=== PATIENT | female | born 1980 | race Two or more races ===

== ENCOUNTER 2019-03-06 11:29 | Emergency (ER) | payer OTHER ==
[~2019-03-06] VITALS: Ht 162.6 cm; Wt 64.0 kg
[2019-03-06] MEDS ORDERED: PRENATAL + DHA1 EAC1 (11:55)
== END 2019-03-06 13:13 | disposition home or self-care (01) ==
LOC: ER 11:29
DX: B34.9 Viral infection, unspecified (principal)

== ENCOUNTER 2019-05-03 16:30 | Inpatient (IN) | payer OTHER ==
[~2019-05-03] VITALS: Ht 162.6 cm; Wt 67.1 kg
[~2019-05-03 16:30] MED LIST: PRENATAL + DHA1 EAC1
[2019-05-03] MEDS ORDERED: IRON325 MG PO (17:45)
[2019-05-03] MEDS ORDERED: DIALYVITE 800-1 EACH PO (17:45)
[2019-05-03] MEDS ORDERED: VITAL-D RX TAB1 EACH PO (17:46)
[2019-05-03] MEDS ORDERED: OMEGA 3 1,0001 EACH PO (17:46)
[2019-05-03] MEDS ORDERED: NIFEDIPINE20 MG PO (17:47)
== END 2019-05-04 15:51 | disposition home or self-care (01) | DRG 833 ==
LOC: LDR 16:30
PROVIDERS: ADMIT Specialist
PROC: BY4CZZZ Ultrasonography of Second Trimester, Single Fetus (ICD-10-PCS; principal; 2019-05-03)
PROC: 4A1HXCZ Monitoring of Products of Conception, Cardiac Rate, External Approach (ICD-10-PCS; 2019-05-03)
DX: O60.02 Preterm labor without delivery, second trimester (principal)

== ENCOUNTER 2019-06-17 15:30 | Inpatient (IN) | payer OTHER ==
[~2019-06-17] VITALS: Ht 160 cm; Wt 74.8 kg
[~2019-06-17 15:30] MED LIST changes: +DIALYVITE 800-1 EACH PO; +IRON325 MG PO; +NIFEDIPINE20 MG PO; +OMEGA 3 1,0001 EACH PO; +VITAL-D RX TAB1 EACH PO
== END 2019-07-29 14:29 | disposition home or self-care (01) | DRG 788 ==
LOC: LDR 07-26 05:59 → O/R 07-26 09:44 → SURG-SUITE 07-26 11:04 → OB/GYN 08-10 15:30
PROVIDERS: ADMIT Specialist
PROC: 4A1HXFZ Monitoring of Products of Conception, Cardiac Rhythm, External Approach (ICD-10-PCS; 2019-07-26)
PROC: 3E033VJ Introduction of Other Hormone into Peripheral Vein, Percutaneous Approach (ICD-10-PCS; 2019-07-26)
PROC: 10D00Z1 Extraction of Products of Conception, Low, Open Approach (ICD-10-PCS; principal; 2019-07-26 06:30)
DX: O65.4 Obstructed labor due to fetopelvic disproportion, unspecified (principal); O69.81X0 Labor and delivery complicated by cord around neck, without compression, not applicable or unspecified; Z3A.37 37 weeks gestation of pregnancy; Z37.0 Single live birth

== ENCOUNTER → 2019-07-19 | Outpatient (CLI) | payer OTHER | END | disposition home or self-care (01) | LOC: PRENATAL | PROVIDERS: ATTEND Specialist | DX: O35.0XX1 Maternal care for (suspected) central nervous system malformation in fetus, fetus 1 (principal); O26.843 Uterine size-date discrepancy, third trimester; O99.89 Other specified diseases and conditions complicating pregnancy, childbirth and the puerperium; O36.8131 Decreased fetal movements, third trimester, fetus 1 ==

== ENCOUNTER 2021-01-07 08:29 | Outpatient (CLI) | payer OTHER | END 2021-01-07 09:30 | disposition home or self-care (01) | LOC: PRENATAL 08:29 | PROVIDERS: ATTEND Obstetrics & Gynecology Maternal & Fetal Medicine | DX: O35.0XX1 Maternal care for (suspected) central nervous system malformation in fetus, fetus 1 (principal); O35.3XX1 Maternal care for (suspected) damage to fetus from viral disease in mother, fetus 1; O98.512 Other viral diseases complicating pregnancy, second trimester; O09.522 Supervision of elderly multigravida, second trimester; O44.02 Complete placenta previa NOS or without hemorrhage, second trimester; Z36.89 Encounter for other specified antenatal screening; Z3A.19 19 weeks gestation of pregnancy ==

== ENCOUNTER 2021-01-25 17:21 | Outpatient (CLI) | payer OTHER | END 2021-01-26 12:11 | disposition home or self-care (01) | LOC: OBS/DEL 17:21 | PROVIDERS: ATTEND Specialist | DX: O26.892 Other specified pregnancy related conditions, second trimester (principal); R10.2 Pelvic and perineal pain; Z3A.22 22 weeks gestation of pregnancy ==

== ENCOUNTER 2021-03-11 08:34 | Outpatient (CLI) | payer OTHER | END 2021-03-11 09:45 | disposition home or self-care (01) | LOC: PRENATAL 08:34 | PROVIDERS: ATTEND Obstetrics & Gynecology Maternal & Fetal Medicine | DX: O26.843 Uterine size-date discrepancy, third trimester (principal); O09.523 Supervision of elderly multigravida, third trimester; O44.03 Complete placenta previa NOS or without hemorrhage, third trimester; Z36.89 Encounter for other specified antenatal screening; Z3A.28 28 weeks gestation of pregnancy ==

== ENCOUNTER 2021-04-21 13:35 | Inpatient (IN) | payer OTHER ==
[~2021-04-21] VITALS: Ht 152.4 cm; Wt 69.4 kg
== END 2021-04-23 08:36 | disposition home or self-care (01) | DRG 833 ==
LOC: OBS/DEL 13:35 → LDR 04-22 10:24 → OB/GYN 04-22 17:33 → LDR 04-22 17:36
PROVIDERS: ADMIT Specialist; ATTEND Specialist
PROC: BY4FZZZ Ultrasonography of Third Trimester, Single Fetus (ICD-10-PCS; 2021-04-21)
PROC: BU46ZZZ Ultrasonography of Uterus (ICD-10-PCS; 2021-04-21)
PROC: 4A1HXFZ Monitoring of Products of Conception, Cardiac Rhythm, External Approach (ICD-10-PCS; principal; 2021-04-22)
DX: O47.03 False labor before 37 completed weeks of gestation, third trimester (principal); O26.853 Spotting complicating pregnancy, third trimester; Z3A.34 34 weeks gestation of pregnancy

== ENCOUNTER 2021-05-10 08:45 | Inpatient (IN) | payer OTHER ==
[~2021-05-10] VITALS: Ht 160 cm; Wt 3.6 kg
[2021-05-10] MEDS ORDERED: ATABEX DHA 200200 MG PO (10:41)
[2021-05-17] MEDS ORDERED: INTEGRA PLUS C1 EAC1 (08:27)
[2021-05-20] MEDS ORDERED: IBUPROFEN800 MG PO (08:28)
== END 2021-05-20 13:28 | disposition home or self-care (01) | DRG 783 ==
LOC: LDR 05-16 23:58 → OB/GYN 05-16 23:58 → LDR 05-17 07:00 → OB/GYN 05-20 13:28
PROVIDERS: ADMIT Specialist; ATTEND Specialist
PROC: 4A1HXFZ Monitoring of Products of Conception, Cardiac Rhythm, External Approach (ICD-10-PCS; 2021-05-16)
PROC: 0UB70ZZ Excision of Bilateral Fallopian Tubes, Open Approach (ICD-10-PCS; 2021-05-17)
PROC: 10D00Z1 Extraction of Products of Conception, Low, Open Approach (ICD-10-PCS; principal; 2021-05-17 07:00)
DX: O34.211 Maternal care for low transverse scar from previous cesarean delivery (principal); O45.8X3 Other premature separation of placenta, third trimester; Z3A.38 38 weeks gestation of pregnancy; Z37.0 Single live birth; Z30.2 Encounter for sterilization; Z20.822 Contact with and (suspected) exposure to COVID-19

== ENCOUNTER 2023-06-25 11:54 | Inpatient (IN) | payer OTHER ==
[~2023-06-25] VITALS: Ht 162.6 cm; Wt 64.4 kg
[~2023-06-25 11:54] MED LIST changes: +ATABEX DHA 200200 MG PO; +IBUPROFEN800 MG PO; +INTEGRA PLUS C1 EAC1
--- NOTE | 2023-06-25 12:58 | NUR ---
SE RECIBE A PACIENTE FEMENINA ALERTDA Y ORIENTADA X3, REFIERE DOLOR ABDOMINAL DESDE HOY. REFIERE QUE SE REALIZO UN SONOGRAMA ABDOMINAL EN DONDE APARECE QUE TIENE QUISTES EN EL PANCREAS. SE PEDRITO S/V Y SE UBICA EN ESPERA DE EVALUACION.
[2023-06-25] MEDS ORDERED: DEXAMETHASONE SODIUM PHOSPHATE 4 MG/ML VIAL IM STA (13:54)
[2023-06-25] MEDS ORDERED: 0.9 % SODIUM CHLORIDE 1,000 ML IV STA (13:54)
[2023-06-25] MEDS ORDERED: MEPERIDINE HCL/PF 25 MG/ML VIAL IV STA (13:55)
--- NOTE | 2023-06-25 14:34 | NUR ---
SE EDUCA PACIENTE SOBRE EL TX MEIDCO Y ESTA REFIERE ENTENDER. SE CANALIZA Y SE COLOCA IVFS Y SE ADMINITRAN MEDICAMENTOS. SE PEDRITO MUESTRAS DE LABORATORIO Y SE ENVIAN. SE ENTREGA ENVASES DE CONTRASTES PO Y ENVASE DE U/A
[2023-06-25 14:37] LABS: HEMATOCRIT 39.9 % (36.0-45.00); HEMOGLOBIN 13.8 g/dL (12.0-15.00); MEAN CORPUSCULAR HEMOGLOBIN 31.9 pg (27.00-32.0); MEAN CORPUSCULAR HGB CONC 34.7 g/dl (32.0-36.0); PLATELET COUNT 324 K/uL (150-450); RED BLOOD COUNT 4.33 M/uL (4.00-6.00); RED CELL DISTRIBUTION WIDTH 12.9 % (11.5-14.5)
--- NOTE | 2023-06-25 15:02 | NUR ---
SE RECIBE PACIENTE ALERTA Y ORIENTADA X3, CON VENOPINCION PATENTE CON ANGIO #18 EN BRAZO RICCARDO CON 0.9N/S BAJANDOLE A 300ML/HR.PACIENTE NPO.
[2023-06-25 15:03] LABS: INR 1.05
[2023-06-25 15:13] LABS: ALBUMIN 3.9 gm/dL (3.4-5.0); BILIRUBIN TOTAL 0.43 mg/dL (0.3-1.2); CALCIUM 9.9 mg/dL (8.5-10.1); CREATININE SERUM 0.71 mg/dL (0.55-1.02); GFR 90.27; GLOBULINA 4.1 G/DL (2.4-3.5); POTASSIUM 3.54 mEq/L (3.5-5.1)
[2023-06-25 15:23] LABS: URINE APPEARANCE Cloudy; URINE BILIRRUBIN Negative (NEGATIVE); URINE BLOOD Negative; URINE COLOR Yellow; URINE GLUCOSE Negative (NEGATIVE); URINE LEUKOCYTE Negative; URINE NITRATE Negative; URINE PROTEIN Negative (NEGATIVE); URINE UROBILINOGEN 0.2 E.U./dl
[2023-06-25 15:26] LABS: URINE BACTERIA 4376.9 uL (0.0-1933); URINE EPITHELIAL CELLS 50.2 uL (0.0-38.8); URINE WBC 11.8 uL (0.0-23.2)
[2023-06-25 15:35] LABS: URINE RBC 1.8 uL (0.0-20.8)
[2023-06-25] MEDS ORDERED: 0.9 % SODIUM CHLORIDE 1,000 ML IV SCH (18:30)
[2023-06-25] MEDS ORDERED: PIPERACILLIN/TAZOBACTAM SODIUM 3.375 GM in 0.9 % SODIUM CHLORIDE 100 ML IV SCH (18:31)
[2023-06-25] MEDS ORDERED: FAMOTIDINE/PF 20 MG in 0.9 % SODIUM CHLORIDE 8 ML IV PUSH SCH (18:31)
[2023-06-25] MEDS ORDERED: TAMSULOSIN HCL 0.4 MG CAP PO SCH (18:34)
[2023-06-25] MEDS ORDERED: MORPHINE SULFATE 2 MG/ML CARTRIDGE IV SCH (18:34)
[2023-06-25] MEDS ORDERED: ACETAMINOPHEN 650 MG SUPP.RECT RECTAL PRN (18:45)
[2023-06-25] MEDS ORDERED: ENALAPRILAT DIHYDRATE 1.25 MG/ML VIAL IV PRN (18:45)
[2023-06-25] MEDS ORDERED: ONDANSETRON HCL 2 MG/ML VIAL IV PRN (18:45)
[2023-06-25 21:51] LABS: C-REACTIVE PROTEIN 0.68 MG/DL (0.00-0.29)
[2023-06-26 04:52] LABS: HEMATOCRIT 37.6 % (36.0-45.00); MEAN CELL VOLUME 91.7 fL (80.00-100.00); MEAN CORPUSCULAR HEMOGLOBIN 31.6 pg (27.00-32.0); MEAN CORPUSCULAR HGB CONC 34.4 g/dl (32.0-36.0); PLATELET COUNT 288 K/uL (150-450); RED BLOOD COUNT 4.11 M/uL (4.00-6.00); RED CELL DISTRIBUTION WIDTH 12.3 % (11.5-14.5)
[2023-06-26 05:12] LABS: CALCIUM 8.6 mg/dL (8.5-10.1); CREATININE SERUM 0.58 mg/dL (0.55-1.02); POTASSIUM 3.62 mEq/L (3.5-5.1)
[2023-06-26] MEDS ORDERED: KETOROLAC TROMETHAMINE 30 MG VIAL IM ONE (17:15)
[2023-06-27] MEDS ORDERED: TRAMADOL HCL 50 MG TABLET PO SCH (01:00)
[2023-06-28 06:30] LABS: HEMATOCRIT 33.5 % (36.0-45.00); HEMOGLOBIN 11.5 g/dL (12.0-15.00); MEAN CELL VOLUME 94.3 fL (80.00-100.00); MEAN CORPUSCULAR HEMOGLOBIN 32.4 pg (27.00-32.0); MEAN CORPUSCULAR HGB CONC 34.4 g/dl (32.0-36.0); PLATELET COUNT 247 K/uL (150-450); RED BLOOD COUNT 3.56 M/uL (4.00-6.00); RED CELL DISTRIBUTION WIDTH 12.5 % (11.5-14.5)
[2023-06-28 07:35] LABS: ALKALINE PHOSPHATASE 117 U/L (50-136); ALT/SGPT 36 U/L (12-78); ANION GAP 9 (10.0-20.0); AST/SGOT 19 U/L (15-37); BLOOD UREA NITROGEN 7 mg/dL (7-18); BUN CREA RATIO 11 (7.0-25.0); CALCIUM 8.4 mg/dL (8.5-10.1); CARBON DIOXIDE 25 mEq/L (21-32); CHLORIDE 111 mmol/L (98-107); CREATININE SERUM 0.63 mg/dL (0.55-1.02); GFR 103.63; GLOBULINA 2.8 G/DL (2.4-3.5); GLUCOSE FASTING 93 mg/dL (65-100); OSMOLALITY SERUM 279 MOSM/KG (275-295); SODIUM 141 mmol/L (136-145); TOTAL PROTEIN 5.8 gm/dL (6.4-8.2)
[2023-06-28 07:40] LABS: C-REACTIVE PROTEIN < 0.29 MG/DL (0.00-0.29)
[2023-06-28] MEDS ORDERED: LACTOBACILLUS ACIDOPHILUS 1 CAP CAP PO SCH (17:00)
[2023-06-28 17:42] LABS: ob NEGATIVE (NEGATIVE)
[2023-06-28 17:44] LABS: FECAL LEUKOCYTES POSITIVE (NEGATIVE)
[2023-06-28] MEDS ORDERED: FAMOtidine 20 MG TABLET PO SCH (21:00)
[2023-06-29] MEDS ORDERED: BENZONATATE 100 MG CAPSULE PO SCH (14:32)
[2023-06-29] MEDS ORDERED: METHYLPREDNISOLONE SOD SUCC 40 MG VIAL IV SCH (17:00)
[2023-06-29] MEDS ORDERED: LORATADINE 10 MG TABLET PO SCH (21:00)
[2023-06-29] MEDS ORDERED: FLUTICASONE PROPIONATE 50 MCG SPRAY NASAL SCH (21:00)
[2023-07-01] MEDS ORDERED: Pramoxine HCl 15 GM FOAM RECTAL SCH (09:00)
[2023-07-01] MEDS ORDERED: INTESTINEX680 M1 PO (16:00)
[2023-07-01] MEDS ORDERED: KETO10TA2 PO (16:01)
== END 2023-07-01 16:35 | disposition home or self-care (01) | DRG 690 ==
LOC: ER 11:54 → MEDI 19:16 → SEC-K 19:16 → MEDI 21:32 → SEC-K 21:57 → MEDI 23:40 → MEDJ 06-30 16:54
PROVIDERS: General Practice; Internal Medicine; Internal Medicine Infectious Disease; ADMIT Internal Medicine; ATTEND Internal Medicine
PROC: BW21YZZ Computerized Tomography (CT Scan) of Abdomen and Pelvis using Other Contrast (ICD-10-PCS; 2023-06-25)
PROC: CF241ZZ Tomographic (Tomo) Nuclear Medicine Imaging of Gallbladder using Technetium 99m (Tc-99m) (ICD-10-PCS; principal; 2023-06-26)
DX: N10 Acute pyelonephritis (principal); N39.0 Urinary tract infection, site not specified; N20.0 Calculus of kidney; K21.9 Gastro-esophageal reflux disease without esophagitis